=== PATIENT | female | born 1985 | race Hispanic/Latino ===

== ENCOUNTER → 2020-04-25 | Outpatient (CLI) | payer BC ==
--- NOTE | 2020-04-25 16:18 | Diagnostic Imaging Report ---
Thyroid ultrasound CPT code: 64036 History: Thyroid goiter Comparison: None Findings: The thyroid echotexture is 13. Vascularity is normal. The right lobe measures 5.9 x 2.6 x 2.8 cm. The left lobe measures 6.1 x 1.6 x 1.9 cm. The isthmus measures 0.3 cm. Nodules (measurements are AP, transverse, craniocaudal): Right Lobe: 2.9 x 1.9 x 2.0 cm heterogeneous, solid, well-circumscribed, hypoechoic, wider than tall nodule without suspicious calcifications. Left Lobe: No cystic mass or discrete solid nodule identified. cm. Isthmus: No cystic mass or discrete solid nodule identified. Lymph Nodes: No cervical lymph nodes are identified. Parathyroids: Not visualized. IMPRESSION: Nodular thyroid goiter with dominant right thyroid nodule measuring up to 2.9 cm. ACR glossary of thyroid rads TI-RADS 1: No focal lesion. TI-RADS 2: Not suspicious. TI-RADS 3: Mildly suspicious (recommend FNA is greater than or equal to 2.5 cm; follow-up at 1, 3, and 5 years if greater than or equal to 1.5 cm) TI-RADS 4: Moderately Suspicious (recommend FNA is greater than or equal to 1.5 cm; follow-up at 1, 2, 3, and 5 years) TI-RADS 5: Highly suspicious (recommend FNA is greater than or equal to 10 mm) TI-RADS 6: Biopsy-proven malignancy Signed by: Meet Johnson MD on 04/25/2020 4:15 PM
== END ==
LOC: US 10:57
PROVIDERS: ATTEND Family Medicine
DX: E04.9 Nontoxic goiter, unspecified (principal)
CPT/HCPCS: 76536